=== PATIENT | female | born 1980 | race African-American/Black ===

== ENCOUNTER 2016-12-28 13:26 | Emergency (ER) | payer OTHER ==
[~2016-12-28] VITALS: Ht 157.5 cm; Wt 81.7 kg
[2016-12-28] MEDS ORDERED: ADVAIR HFA 230M12 GM INH (13:34)
[2016-12-28] MEDS ORDERED: LOPRESSOR50 PO (13:35)
[2016-12-28] MEDS ORDERED: PHENERGAN 25 MG25 M1 PO (15:55)
[2016-12-28] MEDS ORDERED: NAPROSYN500 MG PO (15:55)
[2016-12-28 16:00] VITALS: BP 152/100
== END 2016-12-28 16:00 | disposition home or self-care (01) ==
LOC: ER 13:26
DX: R51 Headache (principal); I10 Essential (primary) hypertension